=== PATIENT | male | born 1980 | race Caucasian/White ===

== ENCOUNTER 2020-11-11 07:00 | Emergency (ER) | payer OTHER ==
[~2020-11-11] VITALS: Ht 188 cm; Wt 111.5 kg
[2020-11-11 07:01] VITALS: BP 161/92
[2020-11-11] MEDS ORDERED: LIDOCAINE 1% MDV 20ML VIAL SC ONE (07:25)
[2020-11-11] MEDS ORDERED: BACI500O21 TOP (07:56)
== END 2020-11-11 08:00 | disposition home or self-care (01) ==
LOC: M ED 07:00
DX: S91.111A Laceration without foreign body of right great toe without damage to nail, initial encounter (principal); W26.0XXA Contact with knife, initial encounter; Y92.9 Unspecified place or not applicable; Y93.9 Activity, unspecified; Y99.9 Unspecified external cause status

== ENCOUNTER → 2021-10-03 | Outpatient (REF) | payer OTHER ==
[~2021-10-03] MED LIST: BACI500O21 TOP
== END ==
LOC: M WUC 18:35
PROVIDERS: ATTEND Physician Assistant
DX: Z20.2 Contact with and (suspected) exposure to infections with a predominantly sexual mode of transmission (principal)

== ENCOUNTER 2022-09-21 22:33 | Emergency (ER) | payer OTHER ==
[~2022-09-21] VITALS: Ht 188 cm; Wt 118.2 kg
[2022-09-22 01:35] VITALS: BP 134/78; TEMP 97.9; O2SAT 98
== END 2022-09-22 01:43 | disposition home or self-care (01) ==
LOC: M ED 22:33
DX: S61.101A Unspecified open wound of right thumb with damage to nail, initial encounter (principal); W26.0XXA Contact with knife, initial encounter; Y93.G1 Activity, food preparation and clean up

== ENCOUNTER → 2023-03-31 | Outpatient (REF) | LOC: M PLAIMG 11:16 | PROVIDERS: ATTEND Internal Medicine | DX: J34.1 Cyst and mucocele of nose and nasal sinus (principal) ==

== ENCOUNTER → 2023-05-09 | Outpatient (CLI) | payer OTHER ==
[~2023-05-09] MED LIST changes: +HOLTER MONITOR XX
== END ==
LOC: M EKG 11:03
PROVIDERS: ATTEND Emergency Medicine
DX: R00.2 Palpitations (principal)